=== PATIENT | female | born 1965 | race American Indian/Alaskan Native ===

== ENCOUNTER 2016-08-02 07:50 | Day surgery (SDC) | payer BC ==
[~2016-08-02 07:50] MED LIST: Lactated Ringers 1,000 ML IV SCH; Lidocaine 1%/Sod Bicarbonate in NS 8.4% 1 ML Syringe IV PRN; Sodium Chloride 0.9% 10 ML Syringe FLUSH PRN
[2016-08-02] MEDS ORDERED: Propofol 200 MG/20 ML SDV ONE (07:53)
[2016-08-02] MEDS ORDERED: Lidocaine 1% 4 ML ONE (07:53)
--- NOTE | 2016-08-02 08:23 | PCM.PREANE ---
Preanesthetic Assessment - Anesthesia/Transfusion/Family Hx Anesthesia History: Prior Anesthesia Without Reaction Family History of Anesthesia Reaction: No Transfusion History: Prior Transfusion Without Reaction Intubation History: Unknown - Review of Systems General: Fatigue, Malaise Pulmonary: No Symptoms (Asthma as a child.:smoker:1/4 pack/day/times 7 years/ KATHRYN with CPAP noted?), Cough (with food getting stuck) Cardiovascular: Palpitations (along with anxiety.) Gastrointestinal: No symptoms (GERD/Dysphagia), Difficulty swallowing Neurological: No Symptoms (fibromyalgia), Headache, Paresthesia (with fibromyalgia), Seizure (in mid teen's.) Other: Reports: Thyroid Problems (hypothyroidism), Sinus Problem (environmental allergies.), Throat Pain, Neck Pain, Depression, Anxiety - Physical Assessment NPO Status Date: 08/01/16 NPO Status Time: 22:00 Pulse: 78 O2 Sat by Pulse Oximetry: 97 Respiratory Rate: 16 Blood Pressure: 121/54 Temperature: 37.0 C Height: 1.57 m Weight: 99.337 kg ASA Class: 2 Mental Status: Alert & Oriented x3 Airway Class: Mallampati = 2 Dentition: Reports: Normal Dentition, Caries Thyro-Mental Finger Breadths: 3 Mouth Opening Finger Breadths: 3 ROM/Head Extension: Full Lungs: Clear to auscultation, Normal respiratory effort Cardiovascular: Regular Rate, Regular Rhythm, No Murmurs - Lab Values: Lab values reviewed and noted and within acceptable ranges to proceed with scheduled procedure. - Allergies Allergies/Adverse Reactions: Allergies Allergy/AdvReac Type Severity Reaction Status Date / Time gabapentin Allergy brain zaps Verified 07/30/16 14:56 morphine Allergy Shortness Verified 07/30/16 14:56 of Breath pregabalin [From Lyrica] Allergy weight gain Verified 07/30/16 14:56 venlafaxine Allergy Change Verified 07/30/16 14:56 Mental Status [place] Allergy Blisters Uncoded 07/30/16 14:56 - Anesthesia Plan Pre-Op Medication Ordered: None - Acknowledgements Anesthesia Type Planned: MAC Pt an Appropriate Candidate for the Planned Anesthesia: Yes Alternatives and Risks of Anesthesia Discussed w Pt/Guardian: Yes Pt/Guardian Understands and Agrees with Anesthesia Plan: Yes PreAnesthesia Questionnaire Cardiovascular History: Reports: High Cholesterol Respiratory History: Reports: Asthma, Sleep Apnea Gastrointestinal History: Reports: Other (See Below) Other Gastrointestinal History: dysphagia Genitourinary History: Reports: UTI, Recurrent, Other (See Below) Other Genitourinary History: urethral dilation 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: Musculoskeletal History: Reports: Fibromyalgia, Other (See Below) Other Musculoskeletal History: R ankle fracture with ORIF, osteopenia, pain syndrome Neurological History: Reports: None Psychiatric History: Reports: Anxiety, Depression Endocrine/Metabolic History: Reports: Hypothyroidism, Vitamin D Deficiency Hematologic History: Reports: None Immunologic History: Reports: None Oncologic (Cancer) History: Reports: None Dermatologic History: Reports: Other (See Below) Other Dermatologic History: onchomycosis of great toenails - Past Surgical History HEENT Surgical History: Reports: Tonsillectomy GI Surgical History: Reports: Appendectomy, Colonoscopy Other GI Surgeries/Procedures: exploratory lap Female Surgical History: Reports: Section, Hysterectomy - SUBSTANCE USE Smoking Status *Q: Current Every Day Smoker Tobacco Use Within Last Twelve Months: Cigarettes Second Hand Smoke Exposure: Yes Recreational Drug Use History: No - HOME MEDS Home Medications: Home Meds Bioflavonoids, [place] [Bioflavonoid [place]] 1 tab PO DAILY 09/24/14 [History] Butalbital/Aspirin/Caffeine [Fiorinal 50-325-40 MG] 1 - 2 cap PO Q4HR PRN [History] Cetirizine [ZyrTEC] 10 mg PO DAILY PRN 09/24/14 [History] Cyclobenzaprine [Flexeril] 10 mg PO Q8HR PRN 09/24/14 [History] Hydrocodone/Acetaminophen [Hydrocodon-Acetaminophen 5-325] 1 tab PO Q6HR PRN 06/05 [History] LORazepam [Ativan] 0.5 mg PO Q8HR PRN 09/24/14 [History] Lidocaine 5% [Lidoderm 5%] 2 patch TOP Q12HR PRN 09/24/14 [History] Mometasone Furoate [Nasonex [place]] 2 sprays ANTIONETTE DAILY PRN 09/24/14 [History] Zolpidem [Ambien] 10 mg PO BEDTIME PRN 09/24/14 [History] atorvaSTATin [Lipitor] 20 mg PO DAILY 09/24/14 [History] buPROPion [Wellbutrin XL] 300 mg PO DAILY 09/24/14 [History] busPIRone [Buspar] 10 mg PO DAILY 09/24/14 [History] Meloxicam [Meloxicam] 15 mg PO DAILY 07/30/16 [History] Omeprazole Magnesium [Prilosec Otc] 20 mg PO DAILY 07/30/16 [History] Ondansetron [Zofran ODT] 4 mg PO Q8H PRN 07/30/16 [History] Thyroid [[place] Thyroid] 30 mg PO DAILY 07/30/16 [History] - CURRENT (IN HOUSE) MEDS Current Meds: Current Medications Lactated Ringer's (Ringers, Lactated) 1,000 mls @ 125 mls/hr IV ASDIRECTED URIEL Stop: 08/02/16 23:00 Lidocaine/Sodium Bicarbonate (Buffered Lidocaine 1% In Ns 8.4%) 0.25 ml IV ONETIME PRN PRN Reason: Prior to IV Start Stop: 08/02/16 18:01 Sodium Chloride (Saline Flush) 10 ml FLUSH ASDIRECTED PRN PRN Reason: Keep Vein Open Stop: 08/02/16 18:00 Discontinued Medications Lidocaine HCl (Xylocaine-Mpf 1%) Confirm Administered Dose 4 mls @ as directed .ROUTE .STK-MED ONE Stop: 08/02/16 07:54 Propofol (Diprivan 20 Ml) Confirm Administered Dose 200 mg .ROUTE .STK-MED ONE Stop: 08/02/16 07:54
--- NOTE | 2016-08-02 10:07 | PCM.OPNOTE ---
- General Post-Op/Procedure Note Date of Surgery/Procedure: 08/02/16 Operative Procedure(s): EGD with bx Pre Op Diagnosis: hoarseness/dysphagia Post-Op Diagnosis: Same Anesthesia Technique: MAC Primary Surgeon: David Boyer EBL in mLs: 0 Complications: None Condition: Good
[2016-08-02 10:13] VITALS: BP 110/66
--- NOTE | 2016-08-02 10:13 | PCM48HPAN ---
Post Anesthesia Note - EVALUATION WITHIN 48HRS OF ANESTHETIC Vital Signs in Normal Range: Yes Patient Participated in Evaluation: Yes Respiratory Function Stable: Yes Airway Patent: Yes Cardiovascular Function Stable: Yes Hydration Status Stable: Yes Pain Control Satisfactory: Yes Nausea and Vomiting Control Satisfactory: Yes Mental Status Recovered: Yes
--- NOTE | 2016-08-02 15:02 | OR ---
DATE OF OPERATION: 08/02/2016 SURGEON: David Boyer MD PREOPERATIVE DIAGNOSIS: Hoarseness and dysphagia. POSTOPERATIVE DIAGNOSIS: Hoarseness and dysphagia. OPERATION PERFORMED: Esophagogastroduodenoscopy with biopsy. FINDINGS: GE junction located at 36 cm, some irregularity was noted. No acute ulcerations were noted. Hiatal hernia was not appreciated. The second portion of the duodenum, duodenal bulb, pyloric channel, antrum, body, and cardia of the stomach and fundus were unremarkable. Balance of esophagus did not show any disease. Lot of swelling around the arytenoids and could barely see the vocal cords. ANESTHESIA: Procedure done under IV sedation. DESCRIPTION OF PROCEDURE: The patient was taken to the GI room, connected to monitoring equipment, given IV sedation, and placed in left lateral position. Bite block was inserted. Video Olympus gastroscope placed in a posterior oropharynx under direct vision, threaded past the cricopharyngeus, down the esophagus, and into the stomach. The stomach was insufflated, and the scope passed through the pylorus to the second portion of the duodenum. Second portion of the duodenum, duodenal bulb, pyloric channel were unremarkable. Antrum was biopsied looking for H. pylori. The body, cardia, and fundus of stomach were unremarkable. J-maneuver did not show any hiatal hernia. The scope was withdrawn to the GE junction and showed some irregularity, and these were biopsied. No direct ulcerations or inflammation was noted. The rest of the esophagus viewed as the scope was withdrawn and was unremarkable. The vocal cords were covered up by swollen arytenoids and other than that, I did not see any alterations on the hypopharynx. The patient tolerated the procedure, was sent to recovery room in a stable condition, and will be followed up in the clinic. ESTIMATED BLOOD LOSS: MMODAL /[id number]
== END 2016-08-02 10:40 | disposition home or self-care (01) ==
LOC: JD.SDS 07:50
PROVIDERS: ATTEND Surgery
PROC: 0DB88ZX Excision of Small Intestine, Via Natural or Artificial Opening Endoscopic, Diagnostic (ICD-10-PCS; principal; 2016-08-02)
DX: R49.0 Dysphonia (principal); R13.10 Dysphagia, unspecified; F41.9 Anxiety disorder, unspecified; J45.909 Unspecified asthma, uncomplicated; F32.9 Major depressive disorder, single episode, unspecified; M79.7 Fibromyalgia; E78.5 Hyperlipidemia, unspecified; E03.9 Hypothyroidism, unspecified; F17.210 Nicotine dependence, cigarettes, uncomplicated; G47.33 Obstructive sleep apnea (adult) (pediatric); Z90.49 Acquired absence of other specified parts of digestive tract; Z90.711 Acquired absence of uterus with remaining cervical stump; Z90.89 Acquired absence of other organs; Z98.890 Other specified postprocedural states; Z79.899 Other long term (current) drug therapy; Z79.51 Long term (current) use of inhaled steroids; Z88.5 Allergy status to narcotic agent; Z88.8 Allergy status to other drugs, medicaments and biological substances; Z99.89 Dependence on other enabling machines and devices; Z87.440 Personal history of urinary (tract) infections
CPT/HCPCS: 43239; 88305; J7120; J2704

== ENCOUNTER 2018-12-18 11:05 | Emergency (ER) | payer BC ==
[2018-12-18] MEDS ORDERED: Aspirin 81 MG Tab.Chew PO ONE (11:24)
[2018-12-18] MEDS ORDERED: Ketorolac 30 MG/ML SDV IVPUSH ONE (11:27)
--- NOTE | 2018-12-18 11:28 | EDM.PDOC ---
ED HPI GENERAL MEDICAL PROBLEM - General Chief Complaint: Chest Pain Stated Complaint: CHEST PAIN Time Seen by Provider: 12/18/18 11:23 Source of Information: Reports: Patient History Limitations: Reports: No Limitations - History of Present Illness INITIAL COMMENTS - FREE TEXT/NARRATIVE: 53-year-old female presents to the ED with diffuse left precordial chest pressure discomfort primarily underneath her left breast. Started about noon yesterday and has persisted since that time. No associated development of fever chills cough or sputum production. Denies burping or belching to relieve the discomfort. She does have a rash under her left breast but it's been there for about a week to 10 days. New bra is a wireless bra. Patient has fibromyalgia syndrome. She recognizes some degree of anxiety as well. Onset: Sudden Onset Date: 12/17/18 Onset Time: 12:00 Duration: Hour(s):, Constant Location: Reports: Chest (Left precordial chest with no radiation through to her back neck or arm.) Quality: Reports: Ache, Pressure Severity: Moderate Improves with: Reports: None Worsens with: Reports: None Context: Denies: Activity, Exercise, Lifting, Sick Contact, Trauma, Other Associated Symptoms: Reports: Chest Pain. Denies: Cough, cough w sputum, Diaphoresis, Fever/Chills, Headaches, Loss of Appetite, Malaise, Nausea/Vomiting , Rash, Seizure, Shortness of Breath, Syncope, Weakness Left Chest Pain Score (Numeric/FACES): 2 - Related Data Allergies Allergy/AdvReac Type Severity Reaction Status Date / Time gabapentin Allergy brain zaps Verified 12/18/18 11:16 morphine Allergy Shortness Verified 12/18/18 11:16 of Breath pregabalin [From Lyrica] Allergy weight gain Verified 12/18/18 11:16 venlafaxine Allergy Change Verified 12/18/18 11:16 Mental Status [place] Allergy Blisters Uncoded 07/30/16 14:56 Home Meds: Home Meds Bioflavonoids, [place] [Bioflavonoid [place]] 1 tab PO DAILY 09/24/14 [History] Butalbital/Aspirin/Caffeine [Fiorinal 50-325-40 MG] 1 - 2 cap PO Q4HR PRN [History] Cetirizine [ZyrTEC] 10 mg PO DAILY PRN 09/24/14 [History] Cyclobenzaprine [Flexeril] 10 mg PO Q8HR PRN 09/24/14 [History] Hydrocodone/Acetaminophen [Hydrocodon-Acetaminophen 5-325] 1 tab PO Q6HR PRN 06/05 [History] LORazepam [Ativan] 0.5 mg PO Q8HR PRN 09/24/14 [History] Lidocaine 5% [Lidoderm 5%] 2 patch TOP Q12HR PRN 09/24/14 [History] Mometasone Furoate [Nasonex [place]] 2 sprays ANTIONETTE DAILY PRN 09/24/14 [History] Zolpidem [Ambien] 10 mg PO BEDTIME PRN 09/24/14 [History] atorvaSTATin [Lipitor] 20 mg PO DAILY 09/24/14 [History] buPROPion [Wellbutrin XL] 300 mg PO DAILY 09/24/14 [History] busPIRone [Buspar] 10 mg PO DAILY 09/24/14 [History] Meloxicam 15 mg PO DAILY 07/30/16 [History] Omeprazole Magnesium [Prilosec Otc] 20 mg PO DAILY 07/30/16 [History] Ondansetron [Zofran ODT] 4 mg PO Q8H PRN 07/30/16 [History] Thyroid [[place] Thyroid] 30 mg PO DAILY 07/30/16 [History] LORazepam [Ativan] 0.5 mg PO Q8H #12 tablet 12/18/18 [Rx] Past Medical History Cardiovascular History: Reports: High Cholesterol Respiratory History: Reports: Asthma, Sleep Apnea Gastrointestinal History: Reports: Other (See Below) Other Gastrointestinal History: dysphagia Genitourinary History: Reports: UTI, Recurrent, Other (See Below) Other Genitourinary History: urethral dilation 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: Musculoskeletal History: Reports: Fibromyalgia, Other (See Below) Other Musculoskeletal History: R ankle fracture with ORIF, osteopenia, pain syndrome Neurological History: Reports: None Psychiatric History: Reports: Anxiety, Depression Endocrine/Metabolic History: Reports: Hypothyroidism, Vitamin D Deficiency Hematologic History: Reports: None Immunologic History: Reports: None Oncologic (Cancer) History: Reports: None Dermatologic History: Reports: Other (See Below) Other Dermatologic History: onchomycosis of great toenails - Past Surgical History HEENT Surgical History: Reports: Tonsillectomy GI Surgical History: Reports: Appendectomy, Colonoscopy Other GI Surgeries/Procedures: exploratory lap Female Surgical History: Reports: Section, Hysterectomy Social & Family History - Caffeine Use Caffeine Use: - Living Situation & Occupation Living situation: Reports: Occupation: Employed ED ROS GENERAL - Review of Systems Review Of Systems: See Below Constitutional: Reports: Malaise, Fatigue. Denies: Fever, Chills, Decreased Appetite, Weight Loss HEENT: Reports: Glasses Respiratory: Denies: Shortness of Breath, Wheezing, Pleuritic Chest Pain, Cough , Sputum Cardiovascular: Reports: Chest Pain. Denies: Blood Pressure Problem (See history present illness.), Claudication, Dyspnea on Exertion, Edema, Lightheadedness, Orthopnea, Palpitations Endocrine: Reports: Fatigue (Chronic.) GI/Abdominal: Reports: No Symptoms : Reports: No Symptoms Musculoskeletal: Reports: Muscle Pain (Generalized myalgia.) Neurological: Reports: No Symptoms Psychiatric: Reports: No Symptoms Hematologic/Lymphatic: Reports: No Symptoms Immunologic: Reports: No Symptoms ED EXAM, GENERAL - Physical Exam Exam: See Below Exam Limited By: No Limitations General Appearance: Alert, WD/WN, No Apparent Distress, Other (Vital signs are normal with temperature 36.3. Pulse 75 and sinus respiratory distress 12 with O2 sats 100% on room air. BP is 03/16/60.) Eye Exam: Bilateral Eye: Normal Inspection Neck: Normal Inspection, Supple, Non-Tender, Full Range of Motion. No: Carotid Bruit, Lymphadenopathy (L), Lymphadenopathy (R) Respiratory/Chest: No Respiratory Distress, Lungs Clear, Normal Breath Sounds, No Accessory Muscle Use, Chest Non-Tender, Other (I could not elicit any chest wall pain on examination of the ribs or parasternal) Cardiovascular: Normal Peripheral Pulses, Regular Rate, Rhythm, No Edema, No Gallop, No Murmur ( tissues.), No Rub Peripheral Pulses: 3+: Posterior Tibial (L), Posterior Tibial (R), Dorsalis Pedis (L), Dorsalis Pedis (R) GI/Abdominal: Normal Bowel Sounds, Soft, Non-Tender, No Organomegaly, No Distention, No Abnormal Bruit, No Mass, Pelvis Stable Back Exam: Normal Inspection, Full Range of Motion, Other (No evidence of any paraspinal muscle spasm in the back). No: CVA Tenderness (L), CVA Tenderness (R ) Extremities: Normal Inspection, Normal Range of Motion, Non-Tender, No Pedal Edema, Other Neurological: Alert (No evidence of any swelling in the lower extremities to suggest DVT.), Oriented, CN II-XII Intact, Normal Cognition Psychiatric: Normal Affect, Normal Mood Skin Exam: Warm, Dry, Intact, Normal Color, No Rash EKG INTERPRETATION EKG Date: 12/18/18 Time: 11:27 Rhythm: NSR Rate (Beats/Min): 69 [place]: LAD-Left [place] Deviation (Borderline left axis deviation at -1.) P-Wave: Present QRS: Other (Initial poor R-wave progression may be secondary to lead placement.) ST-T: Normal QT: Normal EKG Interpretation Comments: Essentially normal ECG. Course - Vital Signs Last Recorded V/S: Last Vital Signs Temp 36.3 C 12/18/18 11:12 Pulse 75 12/18/18 11:12 Resp 12 12/18/18 11:12 BP 124/61 12/18/18 11:12 Pulse Ox 100 12/18/18 11:12 - Orders/Labs/Meds Orders: Active Orders 24 hr Category Date Time Status EKG Documentation Completion [RC] STAT Care 12/18/18 11:24 Active Abdomen 1V Flat [CR] Stat Exams 12/18/18 11:28 Taken Chest 1V Frontal [CR] Stat Exams 12/18/18 11:24 Taken Dextrose 5%-0.9% NaCl [Dextrose 5%-Normal Saline] 1,000 Med 12/18/18 11:30 Active ml IV ASDIRECTED Medication Orders Dextrose/Sodium Chloride (Dextrose 5%-Normal Saline) 1,000 mls @ 125 mls/hr IV ASDIRECTED URIEL Last Admin: 12/18/18 11:45 Dose: 125 mls/hr Labs: Laboratory Tests 12/18/18 12/18/18 Range/Units 11:40 11:40 WBC 9.12 (3.98-10.04) K/mm3 RBC 4.41 (3.98-5.22) M/mm3 Hgb 12.9 (11.2-15.7) gm/dl Hct 39.6 (34.1-44.9) % MCV 89.8 (79.4-94.8) fl MCH 29.3 (25.6-32.2) pg MCHC 32.6 (32.2-35.5) g/dl RDW Std Deviation 47.9 H (36.4-46.3) fL Plt Count 288 (182-369) K/mm3 MPV 10.7 (9.4-12.3) fl Neut % (Auto) 46.4 (34.0-71.1) % Lymph % (Auto) 42.0 (19.3-51.7) % [place] % (Auto) 5.6 (4.7-12.5) % Eos % (Auto) 5.4 (0.7-5.8) Baso % (Auto) 0.5 (0.1-1.2) % Neut # (Auto) 4.23 (1.56-6.13) K/mm3 Lymph # (Auto) 3.83 H (1.18-3.74) K/mm3 [place] # (Auto) 0.51 H (0.24-0.36) K/mm3 Eos # (Auto) 0.49 H (0.04-0.36) K/mm3 Baso # (Auto) 0.05 (0.01-0.08) K/mm3 Sodium 144 (136-145) mEq/L Potassium 3.5 (3.5-5.1) mEq/L Chloride 109 H (98-107) mEq/L Carbon Dioxide 25 (21-32) mEq/L Anion Gap 13.5 (5-15) BUN 17 (7-18) mg/dL Creatinine 0.7 (0.55-1.02) mg/dL Est Cr Clr Drug Dosing 72.66 mL/min Estimated GFR (MDRD) > 60 (>60) mL/min BUN/Creatinine Ratio 24.3 H (14-18) Glucose 101 (74-106) mg/dL Calcium 9.1 (8.5-10.1) mg/dL Magnesium 2.2 (1.8-2.4) mg/dl Total Bilirubin 0.3 (0.2-1.0) mg/dL AST 23 (15-37) U/L ALT 36 (14-59) U/L Alkaline Phosphatase 103 (46-116) U/L Troponin I < 0.017 (0.00-0.056) ng/mL C-Reactive Protein < 0.2 (<1.0) mg/dL Total Protein 7.1 (6.4-8.2) g/dl Albumin 3.6 (3.4-5.0) g/dl Globulin 3.5 gm/dL Albumin/Globulin Ratio 1.0 (1-2) TSH 3rd Generation 1.334 (0.358-3.74) uIU/mL Meds: Medications Generic Name Dose Route Start Last Admin Trade Name Freq PRN Reason Stop Dose Admin Dextrose/Sodium Chloride 1,000 mls @ 125 mls/hr 12/18/18 11:30 12/18/18 11:45 Dextrose 5%-Normal Saline IV 125 mls/hr ASDIRECTED URIEL Administration Discontinued Medications Generic Name Dose Route Start Last Admin Trade Name Freq PRN Reason Stop Dose Admin Aspirin 324 mg 12/18/18 11:24 12/18/18 11:36 Aspirin PO 12/18/18 11:25 324 mg ONETIME ONE Administration Ketorolac Tromethamine 30 mg 12/18/18 11:27 12/18/18 11:42 Toradol IVPUSH 12/18/18 11:28 30 mg ONETIME ONE Administration - Radiology Interpretation Free Text/Narrative:: 53-year-old female presents to the ED with pressure discomfort in the left precordium since noon yesterday. It's primarily underneath her left breast. Does not hurt to take a deep breath. I could not elicit any pain on examination of the chest wall. Lungs and heart sounds normal. Benign abdominal exam. Unclear etiology but definitely does not appear to be cardiac in etiology. ECG is normal at 69/m with no signs of ischemia. Plan IV will be D5 normal saline at 125 mils per hour. Chest x-ray ECG and routine labs to be done to include cardiac markers and CRP. We'll give her Toradol 30 mg IV for pain relief and 4 baby aspirins chewed. - Re-Assessments/Exams Free Text/Narrative Re-Assessment/Exam: 12/18/18 12:23 chest x-ray is within normal limits. [place] silhouette normal no lung infiltrates. Diaphragm is well defined with no blunting. KUB reveals increased stool in the right hemicolon there is a slight amount of dilated air in the colon underneath the left hemidiaphragm. No other abnormalities noted. 12/18/18 12:25 Total white count is 9.12. Auto differential shows 46.4% neutrophils and 42% lymphocytes i.e. mild right shift. Hemoglobin is 12.9 with hematocrit of 39.6. Sodium 144 potassium low-normal at 3.5. Chloride 109 with a bicarbonate of 25. Anion gap is 13.5. BUN is 17 with a creatinine of 0.7. This may GFR is greater than 60. Glucose 101. Calcium is 9.1. Magnesium is 2.2. Liver function normal. Troponin I is less than 0.017. C-reactive protein is less than 0.2. Total protein is 7.1 with an albumin fraction of 3.6. TSH is 1.3. Discussed the findings with the patient. She was relieved to find out that she has no underlying heart issues. She recognizes good deal of anxiety in her life at this point time. Her fibromyalgia is acting up a bit due to changes in barometric pressure and whether. She will be discharged from the ED. I have written a prescription for Ativan 0.5 mg strength to be used on a when necessary basis for anxiety relief 12 tablets. Note given to to her to miss work today. Departure - Departure Time of Disposition: 12:30 Disposition: Home, Self-Care 01 Condition: Fair Clinical Impression: Non-cardiac chest pain, Anxiety Prescriptions: LORazepam [Ativan] 0.5 mg PO Q8H #12 tablet Referrals: Ayesha Vuong, RN CHILD [Primary Care Provider] - Forms: ED Department Discharge, ED Return to Work/School Form Additional Instructions: Evaluation the emergency room today in regards to diffuse left anterior chest pressure discomfort since about noon yesterday. Examination reveals clear lung lynch and normal heart tones. ECG and chest x-ray proved to be normal as well. X-ray of the abdomen did reveal a little extra gas in the colon up underneath the left hemidiaphragm which may or may not be contributing to chest rash or discomfort. Good insight into the fact it is likely due to anxiety with increased stressors in the workplace. This certainly could be the case. Continue current medications. I have written a prescription for Ativan 0.5 mg to be taken every 8 hours as needed for relief of anxiety. Off work the remainder today and in a was provided in this regard. Follow-up with personal care physician if any further problems occur. - My Orders Last 24 Hours: My Active Orders 12/18/18 11:24 EKG Documentation Completion [RC] STAT Chest 1V Frontal [CR] Stat 12/18/18 11:28 Abdomen 1V Flat [CR] Stat 12/18/18 11:30 Dextrose 5%-0.9% NaCl [Dextrose 5%-Normal Saline] 1,000 ml IV ASDIRECTED - Assessment/Plan Last 24 Hours: My Active Orders 12/18/18 11:24 EKG Documentation Completion [RC] STAT Chest 1V Frontal [CR] Stat 12/18/18 11:28 Abdomen 1V Flat [CR] Stat 12/18/18 11:30 Dextrose 5%-0.9% NaCl [Dextrose 5%-Normal Saline] 1,000 ml IV ASDIRECTED
[2018-12-18] MEDS ORDERED: Dextrose 5%-0.9% NaCl 1,000 ML IV SCH (11:30)
--- NOTE | 2018-12-18 12:49 | CR ---
Chest: PA view of the chest was obtained. Comparison: Prior chest x-ray of 07/15/11. Heart size is normal. Tortuous thoracic aorta is seen. Lungs are clear with no acute parenchymal change. Bony structures are grossly intact. Impression: 1. Nothing acute is appreciated on PA chest x-ray. Diagnostic code #1
--- NOTE | 2018-12-18 12:49 | CR ---
Abdomen: Supine view of the abdomen was obtained. Comparison: No prior abdominal x-ray, previous abdominal and pelvic CT exam of 07/25/14 is available. Findings: Multiple calcifications are seen within the pelvis most likely representing phleboliths. Slight degenerative change is scattered within the spine. Bowel gas pattern is normal. No discrete soft tissue abnormality is appreciated. Impression: 1. Findings felt to be incidental. 2. Nothing acute is appreciated on supine abdominal x-ray. Diagnostic code #2
[2018-12-18 12:54] VITALS: BP 111/53; PULSE 72
== END 2018-12-18 12:52 | disposition home or self-care (01) ==
LOC: JD.ED 11:05
DX: R07.89 Other chest pain (principal); F41.9 Anxiety disorder, unspecified; J45.909 Unspecified asthma, uncomplicated; E03.9 Hypothyroidism, unspecified; E78.00 Pure hypercholesterolemia, unspecified; Z88.8 Allergy status to other drugs, medicaments and biological substances; Z88.5 Allergy status to narcotic agent; Z79.890 Hormone replacement therapy; Z79.82 Long term (current) use of aspirin; Z79.51 Long term (current) use of inhaled steroids; Z79.899 Other long term (current) drug therapy
CPT/HCPCS: 36415; 71045; 74018; 80053; 83735; 84443; 84484; 85025; 86140; 93005; 96361; 96374; 99285; A9270; J1885; J7042

== ENCOUNTER 2021-04-02 16:36 | Emergency (ER) | payer OTHER ==
[2021-04-02 18:49] VITALS: BP 120/61; PULSE 58
[2021-04-02] MEDS ORDERED: Ketorolac 30 MG/ML SDV IVPUSH ONE (19:16)
[2021-04-02] MEDS ORDERED: Iopamidol 612 MG/ML 100 ML Bottle IVPUSH ONE (19:17)
[2021-04-02] MEDS ORDERED: Sodium Chloride 0.9% 10 ML Syringe FLUSH ONE (19:17)
[2021-04-02] MEDS ORDERED: Sodium Chloride 0.9% 100 ML IV SCH (19:30)
[2021-04-02] MEDS: Sodium Chloride 0.9% 10 ML Syringe FLUSH PRN ×2 (19:37→20:33)
== END 2021-04-02 21:12 | disposition home or self-care (01) ==
LOC: JD.ED 16:36
DX: S06.0X1A Concussion with loss of consciousness of 30 minutes or less, initial encounter (principal); R79.89 Other specified abnormal findings of blood chemistry; E78.00 Pure hypercholesterolemia, unspecified; J45.909 Unspecified asthma, uncomplicated; K21.9 Gastro-esophageal reflux disease without esophagitis; E03.9 Hypothyroidism, unspecified; Z88.5 Allergy status to narcotic agent; Z88.8 Allergy status to other drugs, medicaments and biological substances; Z79.899 Other long term (current) drug therapy; Z72.0 Tobacco use; W19.XXXA Unspecified fall, initial encounter
CPT/HCPCS: 71275; 96374; 99284; J1885; Q9967

== ENCOUNTER 2021-05-10 08:59 | Emergency (ER) | payer OTHER ==
[2021-05-10 09:14] VITALS: BP 128/79; PULSE 75
== END 2021-05-10 10:49 | disposition home or self-care (01) ==
LOC: JD.ED 08:59
DX: G89.29 Other chronic pain (principal); M25.571 Pain in right ankle and joints of right foot; E78.00 Pure hypercholesterolemia, unspecified; K21.9 Gastro-esophageal reflux disease without esophagitis; E03.9 Hypothyroidism, unspecified; Z86.16 Personal history of COVID-19; Z88.5 Allergy status to narcotic agent; Z88.8 Allergy status to other drugs, medicaments and biological substances; Z79.899 Other long term (current) drug therapy
CPT/HCPCS: 73610-26-RT; 73610-RT; 99283

== ENCOUNTER 2024-02-28 11:20 | Emergency (ER) | payer BC, OTHER ==
[2024-02-28 12:01] VITALS: BP 126/63; PULSE 77
[2024-02-28 12:30] LABS: BASOPHILS ABSOLUTE AUTO 0.1 K/mm3 (0.0-0.2); BASOPHILS PERCENT AUTO 0.3 % (0.0-1.0); EOSINOPHILS ABSOLUTE AUTO 0.1 K/mm3 (0.0-0.4); EOSINOPHILS PERCENT AUTO 0.3 % (0.0-6.0); HEMOGLOBIN 13.3 gm/dl (12.0-16.0); IMMATURE GRAN ABSOLUTE AUTO 0.08 K/mm3 (0.00-0.05); IMMATURE GRAN PERCENT AUTO 0.4 % (0.0-0.4); LYMPHOCYTES PERCENT AUTO 10.1 % (24.0-44.0); MEAN CORPUSCULAR HEMOGLOBIN 30.2 pg (28.0-32.0); MEAN CORPUSCULAR HGB CONC 33.3 g/dl (32.0-36.0); MEAN CORPUSCULAR VOLUME 90.7 fl (83.0-99.0); MEAN PLATELET VOLUME 10.3 fl (9.4-12.3); MONOCYTES ABSOLUTE AUTO 1.4 K/mm3 (0.0-0.8); NEUTROPHILS ABSOLUTE AUTO 16.1 K/mm3 (1.8-7.7); NEUTROPHILS PERCENT AUTO 81.9 % (41.0-71.0); PLATELET COUNT,PLT 280 K/mm3 (150-400); RED BLOOD CELL COUNT 4.41 M/mm3 (4.10-5.30); WHITE BLOOD CELL COUNT,WBC 19.69 K/mm3 (3.9-11.3)
[2024-02-28 13:06] LABS: A/G RATIO 1.1 (1-2); ALANINE AMINOTRANSFERASE,ALT 46 U/L (14-59); ALBUMIN 3.7 g/dl (3.4-5.0); ALKALINE PHOSPHATASE 133 U/L (46-116); ANION GAP 16.7 (5-15); ASPARTATE AMNIOTRANSFERASE,AST 25 U/L (15-37); BILIRUBIN TOTAL 0.5 mg/dL (0.2-1.0); BLOOD UREA NITROGEN,BUN 22 mg/dL (7-18); BUN/CREATININE RATIO 27.5 (14-18); CALCIUM 8.8 mg/dL (8.5-10.1); CARBON DIOXIDE,CO2 22 mEq/L (21-32); CHLORIDE,CL 107 mEq/L (98-107); CREATININE 0.8 mg/dL (0.55-1.02); EST CRCL DRUG DOSING (CG) 84.63 mL/min; ESTIMATED GFR 85 mL/min (>60); GLUCOSE RANDOM 96 mg/dL (70-99); POTASSIUM,K 3.7 mEq/L (3.5-5.1); PROTEIN TOTAL,TP 7.2 g/dl (6.4-8.2); SODIUM,NA 142 mEq/L (136-145)
[2024-02-28 13:09] LABS: TROPONIN I HIGH SENSITIVITY < 4 pg/mL (<=51)
[2024-02-28] MEDS: Ondansetron 4 MG/2 ML SDV IVPUSH ONE (13:44)
[2024-02-28] MEDS: Sodium Chloride 0.9% 1,000 ML IV ONE (13:44)
[2024-02-28] MEDS: Sodium Chloride 0.9% 100 ML IV SCH (13:54)
[2024-02-28] MEDS: Iopamidol 755 Mg/ML 100 ML Bottle IVPUSH ONE (13:54)
[2024-02-28] MEDS: Amoxicillin/Clavulanate K 875-125 MG Tab PO ONE (15:06)
[2024-02-28] MEDS: Azithromycin 250 MG Tab PO ONE (15:06)
== END 2024-02-28 15:08 | disposition home or self-care (01) ==
LOC: JD.ED 11:20
DX: J18.9 Pneumonia, unspecified organism (principal); E78.00 Pure hypercholesterolemia, unspecified; E03.9 Hypothyroidism, unspecified; K21.9 Gastro-esophageal reflux disease without esophagitis; F17.210 Nicotine dependence, cigarettes, uncomplicated; Z88.5 Allergy status to narcotic agent; Z88.8 Allergy status to other drugs, medicaments and biological substances; Z86.16 Personal history of COVID-19; Z90.710 Acquired absence of both cervix and uterus; Z79.899 Other long term (current) drug therapy
CPT/HCPCS: 36415; 71045; 71275; 80053; 84484; 85025; 85379; 87428; 93005; 96361; 96374; 99285; A9270; J2405; J7030; Q9967; 93010; 99284

== ENCOUNTER 2024-09-09 10:26 | Emergency (ER) | payer BC ==
[2024-09-09] MEDS ORDERED: Sodium Chloride 0.9% 10 ML Syringe FLUSH PRN (11:18)
[2024-09-09 11:38] LABS: BASOPHILS ABSOLUTE AUTO 0.1 K/mm3 (0.0-0.2); BASOPHILS PERCENT AUTO 0.4 % (0.0-1.0); EOSINOPHILS ABSOLUTE AUTO 0.2 K/mm3 (0.0-0.4); EOSINOPHILS PERCENT AUTO 1.2 % (0.0-6.0); IMMATURE GRAN ABSOLUTE AUTO 0.09 K/mm3 (0.00-0.05); IMMATURE GRAN PERCENT AUTO 0.5 % (0.0-0.4); LYMPHOCYTES ABSOLUTE AUTO 2.8 K/mm3 (1.0-4.8); LYMPHOCYTES PERCENT AUTO 14.3 % (24.0-44.0); MEAN PLATELET VOLUME 10.4 fl (9.4-12.3); MONOCYTES ABSOLUTE AUTO 1.4 K/mm3 (0.0-0.8); MONOCYTES PERCENT AUTO 7.2 % (0.0-8.0); NEUTROPHILS ABSOLUTE AUTO 14.7 K/mm3 (1.8-7.7); NEUTROPHILS PERCENT AUTO 76.4 % (41.0-71.0); NRBC ABSOLUTE 0.00 (0.00-0.02); NRBC PERCENT 0.0 % (0.0-0.2); PLATELET COUNT,PLT 318 K/mm3 (150-400); RED BLOOD CELL COUNT 4.44 M/mm3 (4.10-5.30); WHITE BLOOD CELL COUNT,WBC 19.23 K/mm3 (3.9-11.3)
[2024-09-09 11:53] LABS: A/G RATIO 0.9 (1-2); ALANINE AMINOTRANSFERASE,ALT 54.0 U/L (14-59); ASPARTATE AMNIOTRANSFERASE,AST 40.0 U/L (15-37); BILIRUBIN TOTAL 0.7 mg/dL (0.2-1.0); BLOOD UREA NITROGEN,BUN 12.0 mg/dL (7-18); CARBON DIOXIDE,CO2 24.0 mEq/L (21-32); CHLORIDE,CL 106.0 mEq/L (98-107); CREATININE 0.8 mg/dL (0.55-1.02); EST CRCL DRUG DOSING (CG) 64.58 mL/min; ESTIMATED GFR 84.0 mL/min (>60); GLUCOSE RANDOM 104.0 mg/dL (70-99); POTASSIUM,K 3.7 mEq/L (3.5-5.1); PROTEIN TOTAL,TP 7.4 g/dl (6.4-8.2); SODIUM,NA 140.0 mEq/L (136-145)
[2024-09-09] MEDS: Iopamidol 755 Mg/ML 100 ML Bottle IVPUSH ONE (12:19)
[2024-09-09] MEDS: Sodium Chloride 0.9% 10 ML Syringe FLUSH ONE (12:20)
[2024-09-09 13:35] VITALS: BP 129/80; PULSE 80
== END 2024-09-09 13:34 | disposition home or self-care (01) ==
LOC: JD.ED 10:26
DX: K13.0 Diseases of lips (principal); E86.0 Dehydration; E78.00 Pure hypercholesterolemia, unspecified; J45.909 Unspecified asthma, uncomplicated; K21.9 Gastro-esophageal reflux disease without esophagitis; E03.9 Hypothyroidism, unspecified; Z86.16 Personal history of COVID-19; Z90.49 Acquired absence of other specified parts of digestive tract; Z90.710 Acquired absence of both cervix and uterus; Z88.5 Allergy status to narcotic agent; Z88.8 Allergy status to other drugs, medicaments and biological substances; Z79.899 Other long term (current) drug therapy
CPT/HCPCS: 36415; 70487; 80053; 85025; 86140; 87641; 96360; 99284; A9270; J7030; Q9967

== ENCOUNTER 2024-09-14 10:58 | Emergency (ER) | payer BC ==
[2024-09-14] MEDS: cefTRIAXone 1 GM, Lidocaine 1% 2.1 ML IM ONE (13:01)
[2024-09-14 14:39] VITALS: BP 128/75; PULSE 80
== END 2024-09-14 13:08 | disposition home or self-care (01) ==
LOC: JD.ED 10:58
DX: K13.0 Diseases of lips (principal); E78.00 Pure hypercholesterolemia, unspecified; J45.909 Unspecified asthma, uncomplicated; K21.9 Gastro-esophageal reflux disease without esophagitis; E03.9 Hypothyroidism, unspecified; Z88.8 Allergy status to other drugs, medicaments and biological substances; Z88.5 Allergy status to narcotic agent; Z79.899 Other long term (current) drug therapy; Z86.16 Personal history of COVID-19
CPT/HCPCS: 96372; 99283; A9270; J0696; J2003